=== PATIENT | female | born 1990 | race Caucasian/White ===

== ENCOUNTER 2018-11-14 00:10 | Emergency (ER) | payer OTHER ==
[~2018-11-14] VITALS: Ht 167.6 cm; Wt 67.1 kg
[2018-11-14 00:23] VITALS: BP 129/83
[2018-11-14] MEDS ORDERED: IBUPROFEN 400400 M2 PO (00:39)
== END 2018-11-14 02:43 | disposition home or self-care (01) ==
LOC: ER 00:10
DX: M25.561 Pain in right knee (principal); M25.562 Pain in left knee